=== PATIENT | male | born 1990 | race Caucasian/White ===

== ENCOUNTER 2019-07-28 21:38 | Emergency (ER) | payer MEDICAID ==
[~2019-07-28] VITALS: Ht 180.3 cm; Wt 180.0 kg
[2019-07-28] MEDS ORDERED: KETOROLAC 60MG/2ML VIAL IM ONE (22:45)
[2019-07-28] MEDS ORDERED: HYDROCODONE/ACETAMINOPHEN 5/325MG TABLET PO ONE (22:45)
[2019-07-28 23:11] LABS: CHLORIDE 109 mEq/L (98-107)
[2019-07-29 03:04] VITALS: BP 170/100
[2019-07-29] MEDS ORDERED: IOHEXOL-350 100 ML BOTTLE ONE (04:47)
== END 2019-07-29 03:05 | disposition home or self-care (01) ==
LOC: ER 21:38
DX: S82.092A Other fracture of left patella, initial encounter for closed fracture (principal); S83.095A Other dislocation of left patella, initial encounter; S83.012A Lateral subluxation of left patella, initial encounter; I10 Essential (primary) hypertension; W18.39XA Other fall on same level, initial encounter; Y93.01 Activity, walking, marching and hiking; Y92.89 Other specified places as the place of occurrence of the external cause; Y99.8 Other external cause status
CPT/HCPCS: 36415; 73706; 80048; 96372; 99284; J1885; Q9967; Z7610

== ENCOUNTER 2021-09-25 08:53 | Emergency (ER) | payer MEDICAID ==
[~2021-09-25] VITALS: Ht 177.8 cm; Wt 200.0 kg
[2021-09-25 09:11] VITALS: BP 122/71
[2021-09-25] MEDS ORDERED: KETOROLAC 60MG/2ML VIAL IM ONE (10:15)
[2021-09-25 12:06] LABS: BASOPHILS % 0.3 % (0.0-2.0); HEMATOCRIT. 45.4 % (42.0-52.0); HEMOGLOBIN. 14.9 g/dL (14.0-18.0); LYMPHOCYTES % 8.1 % (20.0-50.0); MEAN CORPUSCULAR HEMOGLOBIN 26.6 pg (28.0-32.0); MEAN CORPUSCULAR VOLUME 81.4 fL (80.0-94.0); MEAN PLATELET VOLUME 9.5 fl (7.4-10.4); MONOCYTES % 5.8 % (2.0-8.0); NEUTROPHILS % 85.8 % (40.0-76.0); PLATELET 254 x1000/uL (130-400); RED BLOOD CELL COUNT 5.59 mill/uL (4.7-6.1); RED CELL DISTRIBUTION WIDTH 14.6 % (11.6-14.6)
[2021-09-25 12:15] LABS: CHLORIDE 107 mEq/L (98-107)
[2021-09-25] MEDS ORDERED: DOXY-326 MT (12:52)
[2021-09-25] MEDS ORDERED: AZITHROMYCIN 500 MG TABLET PO NR (13:00)
[2021-09-25] MEDS ORDERED: CEFTRIAXONE SODIUM 500 MG/VIAL IM NR (13:00)
== END 2021-09-25 13:29 | disposition home or self-care (01) ==
LOC: ER 09:01
DX: N45.1 Epididymitis (principal); N50.811 Right testicular pain
CPT/HCPCS: 36415; 76870; 80053; 83690; 85025; 93976; 96372; 99284; J0696; J1885